=== PATIENT | female | born 1965 | race Caucasian/White ===

== ENCOUNTER 2018-06-15 15:17 | Inpatient (IN) ==
[2018-06-15] MEDS ORDERED: IOPAMIDOL 100 ML BOTTLE IV ONE (15:18)
[2018-06-15 17:11] LABS: Basophils # (Auto) 0 K/mcL (0.0-0.3); Basophils % (Auto) 0.3 % (0.0-2.0); Eosinophils # (Auto) 0 K/mcL (0.0-0.7); Eosinophils % (Auto) 0.3 % (0.0-7.0); Granulocytes % (Auto) 77.6 % (38.0-78.0); Lymphocytes # (Auto) 1.3 K/mcL (1.5-4.8); Lymphocytes % (Auto) 14.3 % (15.5-49.0); Mean Cell Volume 87.8 fL (80.0-100.0); Mean Corpuscular HGB Conc 32.9 g/dL (31.0-36.0); Mean Corpuscular Hemoglobin 28.9 pg (26.0-34.0); Monocytes # (Auto) 0.7 K/mcL (0.1-0.9); Monocytes % (Auto) 7.5 % (1.0-12.0); Platelet Count 217 K/mcL (140-440); RBC 4.65 M/mcL (4.00-5.20); Red Cell Distribution Width 13.1 % (11.5-14.5)
[2018-06-15 17:46] LABS: ALT/SGPT 11 U/l (0-40); Albumin 3.8 gm/dL (3.2-5.2); Alkaline Phosphatase 64 U/L (39-117); Blood Urea Nitrogen 20 mg/dl (6-20)
--- NOTE | 2018-06-15 18:00 | Cat Scan Report ---
CLINICAL INFORMATION: Diverticulitis COMPARISON: 12/01/15 TECHNIQUE: Following oral contrast and the injection of intravenous contrast the patient was scanned during the portal venous phase from the diaphragm through the symphysis pubis. Sagittal and coronal reformats were created.. The radiation exposure was limited using dose reduction technology FINDINGS: Lung bases are clear. There is a 1 cm cyst in the lateral segment left lobe of liver. This is a chronic stable finding. The liver is otherwise normal. Spleen is normal in size and homogeneous. Between the tail of the pancreas and spleen there is a 1.4 cm accessory spleen. This is an incidental finding. The pancreas, gallbladder, adrenals and kidneys are normal. There is a paraumbilical hernia which has a wide neck and contains a loop of small bowel. There is no inflammation or obstruction at this level. The oral contrast has passed through normal small intestine to the rectum without obstruction. The small bowel is normal. There is a row surgical sutures adjacent to the distal descending colon. This is near the site where the acute diverticulitis and abscess were seen on the prior study in 2016. There is no inflammation at this level. However, the patient has developed a new area of diverticulitis in the mid sigmoid colon. The wall is thickened and inflamed and there is inflammation in the surrounding fat. Above the sigmoid colon at this level it there is an abscess which contains fluid and air. It measures 3.6 x 4.0 cm in size. No ascites or free intraperitoneal air are present. Urinary bladder is decompressed. The uterus has been removed. The L5-S1 disc space is severely narrowed and degenerated and there is spur formation. This is a chronic stable finding. IMPRESSION: Acute diverticulitis in the sigmoid colon with a 4 cm abscess adjacent to the sigmoid. Ashlee Manley was called with the results Interpreted and Authenticated by: Jd Watt 06/15/18
--- NOTE | 2018-06-15 18:27 | Emergency Department Note ---
Abdominal Pain HPI - General Chief Complaint: Abdominal Pain Stated Complaint: Abd pain Time Seen by Provider: 06/15/18 15:44 Source: patient Mode of arrival: ambulatory Limitations: no limitations - History of Present Illness HPI Narrative: 52-year-old female in ED today for abdominal pain. Patient states 2 days ago she began having abdominal pain. Patient went to a minor care physician who ruled out urinary tract infection. Patient states she has had a fever and low right-sided abdominal pain, aches also has sharp spasms. 2016 patient had a ruptured colon along with diverticulitis. Patient states she does not take abdominal pain lightly. Pt has hx of appendectomy, total hysterectomy, except cervix and several episodes of diverticulitis. One episode resulted in sepsis and a partial colectomy. Patient is currently on antibiotics. MD Complaint: abdominal pain Onset (ago): day(s) (2) Consistency: constant Location: suprapubic Severity: mild Severity scale (1-10): 4 Associated symptoms: Reports: fever - Related Data Home Medications Medication Instructions Recorded Confirmed lactobacillus combination no.8 3 3,000 mmu cells PO QDAY 08/14/17 06/13/18 billion cell capsule mecobalamin (vitamin B12) 5,000 mcg PO 08/14/17 06/13/18 mcg disintegrating tablet polyethylene glycol 3350 17 gram 17 g PO QDAY PRN 08/14/17 06/13/18 oral powder packet Previous Rx's Medication Instructions Recorded methocarbamol 750 mg tablet 750 mg PO Q6H PRN #30 tab 01/31/18 naproxen 500 mg tablet 500 mg PO Q12H #30 tab 01/31/18 ciprofloxacin 500 mg tablet 500 mg PO BID #20 tab 06/13/18 metronidazole 500 mg tablet 500 mg PO BID #20 tab 06/13/18 Allergies Allergy/AdvReac Type Severity Reaction Status Date / Time lactose AdvReac Unknown Unknown Verified 06/15/18 15:18 Review of Systems Constitutional: Reports: fever. Denies: chills, weakness, weight change Eyes: Denies: eye pain, eye discharge ENT ED: Denies: ear pain, throat pain, dental pain, congestion Cardiovascular: Denies: chest pain, palpitations, dyspnea on exertion Respiratory: Denies: shortness of breath, cough, wheezes Gastrointestinal: Reports: abdominal pain. Denies: nausea, vomiting, diarrhea, constipation Musculoskeletal: Denies: back pain Integumentary: Denies: rash Psychiatric: Denies: anxiety, depression Endocrine: Denies: fatigue Hematological/Lymphatic: Denies: easy bleeding, lymphadenopathy Allergic/Immunologic: Denies: facial swelling, urticaria Abdominal Pain PMH - Past Medical History [facility] Narrative: All Active Problems (Last Reviewed 06/13/18 @ 11:19 by Arden Mitchell PA-C) Pelvic pain (Acute) Lumbar spine strain (Acute) Abdominal pain (Acute) Mid-back pain, acute (Acute) Sepsis (Acute) History of knee surgery (Chronic) History of hysterectomy (Chronic) History of delivery (Chronic) History of colonoscopy (Chronic) LLQ abdominal pain (Acute) Hyperbilirubinemia (Acute) Anemia (Chronic) Past Surgical History (Last Reviewed 06/13/18 @ 11:19 by Arden Mitchell PA-C) History of knee surgery (Chronic) History of hysterectomy (Chronic) History of delivery (Chronic) History of colonoscopy (Chronic) History of colostomy reversal (Acute) Status post Rodger's procedure (Acute) Family History (Last Reviewed 06/13/18 @ 11:19 by Arden Mitchell PA-C) Other No pertinent family history Social History (Last Updated 06/13/18 @ 11:25 by Arden Mitchell PA-C) No Social History Section defined Medical history: Reports: other (diverticulitis) Family history: Reports: other (diverticulitis) - Social History Smoking status: Never smoker Alcohol use: Reports: None Drug use: Reports: none Physical Exam Limitations: no limitations General appearance: alert, in no apparent distress Head: atraumatic, normocephalic, normal inspection Eye: Present: normal appearance, PERRL. Absent: conjunctival injection ENT: normal exam, normal oropharynx, mucous membranes moist, normal external ear exam Neck: Present: normal inspection. Absent: lymphadenopathy Chest: Present: normal inspection, symmetric chest wall rise. Absent: tenderness Respiratory: Present: normal lung sounds bilaterally. Absent: respiratory distress, rales/crackles, wheezes Cardiovascular: Present: normal rhythm, tachycardia. Absent: systolic murmur, diastolic murmur Abdominal: Present: soft, tenderness (suprapubic), normal bowel sounds. Absent : distention, guarding, rebound, rigidity Abdominal tenderness: Present: suprapubic Extremities: Present: normal inspection. Absent: tenderness, pedal edema Back: Present: normal inspection. Absent: tenderness Neurological: Present: alert, oriented X3, normal gait Psychiatric: Present: normal affect, normal mood. Absent: depressed, agitated, anxious Skin: Present: warm, dry, intact, normal color. Absent: cyanosis, diaphoresis, erythema Course Vital Signs Temperature 98.0 F 06/15/18 15:18 Pulse Rate 107 H 06/15/18 15:18 Respiratory Rate 16 06/15/18 15:18 Blood Pressure 117/78 06/15/18 15:18 Pulse Oximetry (%) 98 06/15/18 15:18 Temperature 98.0 F 06/15/18 15:18 Pulse Rate 91 H 06/15/18 18:20 Respiratory Rate 16 06/15/18 15:18 Blood Pressure 112/78 06/15/18 18:20 Pulse Oximetry (%) 97 06/15/18 18:20 Abdominal Pain - MDM Narrative Medical decision making narrative: Dr. Watt called with the CT results and advised surgical doctor to be consulted. Consulted with Dr. Hemphill patient's history and present condition along with diagnostics. Dr. Hemphill advised she would assess patient, and admit her. - Lab Data Lab results reviewed: Yes I reviewed the patient's lab results. Result diagrams: 06/15/18 16:25 06/15/18 15:55 Lab Results 06/15/18 06/15/18 06/15/18 Range/Units 15:55 15:55 16:25 WBC 9.4 (4.5-11.0) K/mcL RBC 4.65 (4.00-5.20) M/mcL Hgb 13.4 (12.0-15.0) g/dL Hct 40.8 (36.0-48.0) % POC Hct 40.0 (36.0-48.0) % MCV 87.8 (80.0-100.0) fL MCH 28.9 (26.0-34.0) pg MCHC 32.9 (31.0-36.0) g/dL RDW 13.1 (11.5-14.5) % Plt Count 217 (140-440) K/mcL MPV 9.3 (7.4-10.4) fL Gran % 77.6 (38.0-78.0) % Lymph % (Auto) 14.3 L (15.5-49.0) % Rusk % (Auto) 7.5 (1.0-12.0) % Eos % (Auto) 0.3 (0.0-7.0) % Baso % (Auto) 0.3 (0.0-2.0) % Gran # 7.3 (1.8-8.0) K/mcL Lymph # (Auto) 1.3 L (1.5-4.8) K/mcL Rusk # (Auto) 0.7 (0.1-0.9) K/mcL Eos # (Auto) 0 (0.0-0.7) K/mcL Baso # (Auto) 0 (0.0-0.3) K/mcL VBG Lactic Acid 0.6 (0.5-2.2) mmol/L POC Sodium 142 (133-145) mmol/L Sodium 137 (133-145) mmol/L POC Potassium 3.7 (3.3-5.1) mmol/L Potassium 3.8 (3.3-5.1) mmol/L POC Chloride 105 (96-108) mmol/L Chloride 102 (96-108) mmol/L Carbon Dioxide 21 L (22-30) mmol/L POC Total CO2 24 (22-30) mmol/L Anion Gap 14.0 (8-16) POC BUN 25 H (6-20) mg/dl BUN 20 (6-20) mg/dl Creatinine 0.9 (0.6-1.1) mg/dl POC Creatinine 0.8 (0.6-1.1) mg/dl GFR Calculation 75 Glucose 105 (70-105) mg/dL POC Glucose 109 H (70-105) mg/dL Calcium 9.3 (8.6-10.4) mg/dl POC WB Ioniz Calcium 1.22 (1.16-1.32) mmol/L Total Bilirubin 1.2 H (0.0-1.0) mg/dL AST 19 (0-37) U/l ALT 11 (0-40) U/l Alkaline Phosphatase 64 (39-117) U/L Total Protein 7.7 (5.9-8.4) gm/dL Albumin 3.8 (3.2-5.2) gm/dL Globulin 3.9 H (2.2-3.7) gm/dL Albumin/Globulin Ratio 1.0 (1.0-2.3) - Radiology Data Radiology results reviewed: Yes I reviewed the patient's radiology results. Acute diverticulitis in the sigmoid colon with a 4 cm abscess adjacent to the sigmoid. Disposition Pt seen by CYCLE CONSULTANT/PA only: No (Executor Of Estate) Clinical Impression: Diverticulitis, Abscess of abdominal cavity Disposition: Xfer As Inpt ([facility]) Condition: Fair Referrals: Deandre Umana MD [Primary Care Provider] - Time of Disposition: 19:18
[2018-06-15 19:30] LABS: Appearance,Urine CLEAR; Bacteria,Urine 0 /hpf (0); Bilirubin,Urine NEG (NEG); Color,Urine YELLOW; Glucose,Urine (UA) NORM (NEG); Leukocyte Esterase,Urine NEG /uL (NEG); Protein,Urine NEG (NEG); Specific Gravity,Urine <= 1.005 (1.000-1.035); Urine Blood 2+ (MODERATE) mg/dL (<0.03); Urine RBC 1 /hpf (0-1); Urine Squamous Epithelial Cell 1 /hpf (0-4); Urine Transitional Epi Cells < 1 /hpf (0-2); Urine WBC 1 /hpf (0-4); Urobilinogen,Urine NORM (NEG)
[2018-06-15] MEDS: LACTATED RINGERS 1,000 ML IV SCH (20:23)
--- NOTE | 2018-06-15 20:31 | XRay Report ---
HISTORY: Preop FINDINGS: The lungs are clear. The heart, mediastinum, henny and pleura are normal. IMPRESSION: Normal chest. Interpreted and Authenticated by: Jd Watt 06/15/18
[2018-06-15] MEDS: metroNIDAZOLE 500 MG/100 ML BAG IV SCH (22:14)
--- NOTE | 2018-06-15 22:58 | Consultation ---
DATE OF CONSULTATION: 06/15/2018 CHIEF COMPLAINT: Ms. Alves is seen in consultation at the request of BROWN Willis, in the Emergency Department for complaints of lower abdominal pain. HISTORY OF PRESENT ILLNESS: Ms. Alves is a 52-year-old woman who presented to the emergency department with complaints of lower abdominal pain beginning Monday, 2 days ago. On that day, she was having lower abdominal pain primarily in the suprapubic region, and she also reports having noticed low-grade fevers at home. Her symptoms were concerning to her. She has had prior episodes of diverticulitis, and she thought her symptoms were mimicking prior episodes. She sought out medical attention for this at the urgent care, as her primary care physician's office was closed. In urgent care, she requested that CT scan be done given her prior history of diverticulitis, but she states that it was decided that she did not need one. She was discharged from urgent care with prescriptions for Cipro and Flagyl. She was reportedly treated for diverticulitis and the possibility of urinary tract infection. She has had some improvement in her pain, but her pain has not completely resolved, and she has continued to have some low-grade fevers. Again because her symptoms were concerning for prior episodes of diverticulitis, she sought out further attention and came to the Emergency Department today. The patient's past medical history regarding her diverticular disease is significant for diverticulitis with pneumoperitoneum for which she was admitted to the hospital and underwent a Rodger's procedure on 12/01/2015. The patient subsequently underwent takedown of her colostomy on 07/08/2016. Since her last surgery, the patient has done relatively well and not had any issues regarding her colon until recently as per above. REVIEW OF SYSTEMS: CONSTITUTIONAL: Reports fevers at home. Denies chills. Denies weight loss. Appetite has been good. CARDIOVASCULAR: Denies chest pain or pressure. Denies palpitations. No history of NH. Reports that she is able to walk up 2 flights of stairs without difficulty. PULMONARY: No new cough or production of sputum. No history of asthma. No history of COPD. GASTROINTESTINAL: Abdominal pain as per above. History of diverticulitis with resection as per above. No nausea or vomiting. GENITOURINARY: No dysuria. SOCIAL HISTORY: The patient denies tobacco use and alcohol use. She denies any recreational drug use. ALLERGIES: LACTOSE. HOME MEDICATIONS: Lactobacillus, vitamin B12 of 5000 mcg p.o., MiraLax 17 grams p.o. daily, ciprofloxacin 500 mg p.o. b.i.d., and metronidazole 500 mg p.o. b.i.d. PHYSICAL EXAMINATION: VITAL SIGNS: Temperature 98.0, pulse 91, respirations 16, blood pressure 117/78, O2 saturations 97% on room air. GENERAL APPEARANCE: Ms. Alves is a well-developed, well-nourished woman who appears her stated age in no distress. HEENT: Head is normocephalic, sclerae white, mucous membranes are moist. NECK: Supple. CHEST: Breath sounds are clear to auscultation bilaterally. No rales or wheezes are heard. No use of accessory respiratory musculature. CARDIOVASCULAR: Regular rhythm, slightly tachycardic. ABDOMEN: Soft, nondistended. Mild tenderness in the lower abdomen just to the right of midline, still near the mid pelvis. There is no guarding on palpation of the area. No distinct mass palpable. No rebound tenderness on the abdomen. No involuntary guarding of the abdomen, and the remainder of the abdomen is nontender to palpation. Well-healed scars from previous surgeries for diverticulitis and colostomy takedown are present. EXTREMITIES: Warm with DP pulses easily palpable bilaterally. No edema. LABS AND STUDIES: CBC drawn in the Emergency Department shows white blood cell count of 9.4 with no left shift. Hemoglobin is 13.4, hematocrit 40.8, platelets of 217. Serum chemistry shows sodium of 137, potassium 3.8, chloride 102, CO2 of 21, BUN 20, creatinine 0.9, glucose 105, calcium 9.3, total bilirubin is mildly elevated at 1.2, AST 19, ALT 11, alkaline phosphatase 64. Urinalysis is negative for ketones, 2+ blood is present. Negative for nitrites and leukocyte esterase. CT scan performed in the Emergency Department done with oral and IV contrast shows diverticulitis in the mid sigmoid distal to the site of previous surgery. The wall was thickened and inflamed in this area with inflammation in the surrounding fat above the sigmoid colon at this level and abscess containing fluid and air is noted to be 3.6 x 4 cm in size. There is no ascites or free intraperitoneal air. ASSESSMENT AND PLAN: Diverticulitis with abscess. The patient will be admitted for IV fluid hydration, bowel rest, and IV antibiotics. At this time, she is clinically stable, and we will try some conservative management to see if this abscess may respond with this. The patient was informed that if she does not show adequate response to this therapy or if she shows worsening of her condition, she may need operative intervention. The patient verbalized understanding of this plan and is in agreement. RC:in Job ID: [id number] Doc ID: [id number] Trang Hemphill MD
[2018-06-15] MEDS: PIPERACILLIN SODIUM/TAZOBACTAM 3.375 GM in DEXTROSE 5% IN WATER 50 ML IV SCH (23:21)
[2018-06-16] MEDS: LACTATED RINGERS 1,000 ML IV SCH ×3 (04:44→21:06)
[2018-06-16] MEDS: metroNIDAZOLE 500 MG/100 ML BAG IV SCH ×3 (04:44→21:29)
[2018-06-16] MEDS: PIPERACILLIN SODIUM/TAZOBACTAM 3.375 GM in DEXTROSE 5% IN WATER 50 ML IV SCH ×3 (05:54→22:39)
[2018-06-16 06:39] LABS: Basophils # (Auto) 0 K/mcL (0.0-0.3); Basophils % (Auto) 0.3 % (0.0-2.0); Eosinophils # (Auto) 0 K/mcL (0.0-0.7); Eosinophils % (Auto) 0.6 % (0.0-7.0); Granulocytes % (Auto) 70.9 % (38.0-78.0); Lymphocytes # (Auto) 1.2 K/mcL (1.5-4.8); Lymphocytes % (Auto) 19.3 % (15.5-49.0); Mean Cell Volume 87.1 fL (80.0-100.0); Mean Corpuscular HGB Conc 33.6 g/dL (31.0-36.0); Mean Corpuscular Hemoglobin 29.3 pg (26.0-34.0); Monocytes # (Auto) 0.6 K/mcL (0.1-0.9); Monocytes % (Auto) 8.9 % (1.0-12.0); Platelet Count 200 K/mcL (140-440); RBC 4.03 M/mcL (4.00-5.20); Red Cell Distribution Width 13.3 % (11.5-14.5)
[2018-06-16 07:17] LABS: ALT/SGPT 9 U/l (0-40); Albumin/Globulin Ratio 0.9 (1.0-2.3); Alkaline Phosphatase 51 U/L (39-117); Blood Urea Nitrogen 19 mg/dl (6-20)
--- NOTE | 2018-06-16 07:25 | Emergency Department Note ---
ED Note Addendum Note Addendum: I discussed this case with the mid-level provider and agree with her assessment and plan.
--- NOTE | 2018-06-16 09:31 | General Surgery Progress Note ---
Surgical - Auxillary Note - Subjective Patient Information: Note initiated : 06/16/18 at 9:28 am Service Date, if different from initiated Date: [] Patient: Shana Alves 52 y/o F admitted on 06/15/18 for Abd pain. Chief Complaint: [] Patient sitting up in bed. Says she is doing well. Pain less this morning and seeming a little more midline. No pain medication given overnight. No nausea or emesis. Vital Signs Temp Pulse Resp BP Pulse Ox 98.6 F 76 16 95/60 96 06/16/18 07:10 06/16/18 04:00 06/16/18 07:10 06/16/18 07:10 06/16/18 07:10 Period Temp Pulse Resp BP Sys/Baeza Pulse Ox Last 24 Hr 97.9 F-98.7 F 75-107 16-16 95-128/60-85 96-98 Intake and Output 06/15/18 06/16/18 06/16/18 21:59 05:59 13:59 Intake Total 150 / 150 Output Total 350 / 350 Balance -200 / -200 Weight 172 lb PE: No distress Chest: clear bilaterally. No rales or wheezes. CV: regular rate and rhythm. ABD: soft, non distended. minimal tenderness in lower mid abdomen. EXT: Warm, no edema. CBC and Chem 7 06/16/18 04:55 06/16/18 04:55 A/P: Diverticulitis with abscess. Clinically stable. Continue conservative therapy for now with bowel rest and IV abx.
[2018-06-16] MEDS: ONDANSETRON 4 MG/2 ML VIAL IV PRN ×2 (10:20→23:42)
[2018-06-16] MEDS ORDERED: ACETAMINOPHEN 1,000 MG/100 ML BOTTLE IV ONE (20:02)
[2018-06-16] MEDS: DEXTROSE 5%-1/2NS W/10MEQ KCL 1,000 ML IV SCH (20:34)
[2018-06-17] MEDS: metroNIDAZOLE 500 MG/100 ML BAG IV SCH ×3 (04:48→22:32)
[2018-06-17 05:40] LABS: Blood Urea Nitrogen 21 mg/dl (6-20)
[2018-06-17] MEDS: PIPERACILLIN SODIUM/TAZOBACTAM 3.375 GM in DEXTROSE 5% IN WATER 50 ML IV SCH ×3 (05:52→23:46)
[2018-06-17] MEDS ORDERED: ACETAMINOPHEN 1,000 MG/100 ML BOTTLE IV PRN (08:45)
--- NOTE | 2018-06-17 10:06 | General Surgery Progress Note ---
Surgical - Auxillary Note - Subjective Patient Information: Note initiated : 06/17/18 at 9:58 am Service Date, if different from initiated Date: [] Patient: Shana Alves 52 y/o F admitted on 06/15/18 for Abd pain. Chief Complaint: Patient resting in bed. Had a headache last night which resolved with Tylenol. Reports abdominal pain has resolved. No nausea or vomiting. Passed stool last evening and passing some gas. Vital Signs Temp Pulse Resp BP Pulse Ox 98.0 F 66 16 91/52 98 06/17/18 06:28 06/17/18 04:27 06/17/18 06:28 06/17/18 06:28 06/17/18 06:28 Period Temp Pulse Resp BP Sys/Baeza Pulse Ox Last 24 Hr 97.9 F-98.3 F 66-82 14-16 91-111/52-79 95-98 Intake and Output 06/16/18 06/17/18 06/17/18 21:59 05:59 13:59 Intake Total 1250 / 1250 150 / 150 Output Total 625 / 625 150 / 150 300 / 300 Balance 625 / 625 0 / 0 -300 / -300 Weight 175 lb 8 oz PE: Patient is resting in bed. No distress. Chest: Breath sounds clear bilaterally, no rales or wheezes heard. No use of accessory musculature. Cardiovascular: Regular rhythm and rate. Abdomen: Soft, nondistended, nontender to palpation. Tenderness in the lower abdomen seems resolved. Extremities warm without cyanosis or edema. CBC and Chem 7 06/16/18 04:55 06/17/18 04:16 Assessment and plan: Diverticulitis with abscess. Clinically stable with improvement in exam. Patient remains afebrile and has had a normal white blood cell count on admission and yesterday. We will trial clear liquids today. Continue IV antibiotics.
[2018-06-17] MEDS: ONDANSETRON 4 MG/2 ML VIAL IV PRN (22:32)
[2018-06-17] MEDS: DEXTROSE 5%-1/2NS W/10MEQ KCL 1,000 ML IV SCH ×2 (23:41→23:48)
[2018-06-18] MEDS: metroNIDAZOLE 500 MG/100 ML BAG IV SCH ×3 (04:48→19:09)
[2018-06-18] MEDS: PIPERACILLIN SODIUM/TAZOBACTAM 3.375 GM in DEXTROSE 5% IN WATER 50 ML IV SCH ×3 (06:17→22:12)
[2018-06-18 06:24] LABS: Basophils # (Auto) 0 K/mcL (0.0-0.3); Basophils % (Auto) 0.3 % (0.0-2.0); Eosinophils # (Auto) 0 K/mcL (0.0-0.7); Eosinophils % (Auto) 1.1 % (0.0-7.0); Granulocytes % (Auto) 67.4 % (38.0-78.0); Lymphocytes # (Auto) 0.9 K/mcL (1.5-4.8); Lymphocytes % (Auto) 21.2 % (15.5-49.0); Mean Cell Volume 87.1 fL (80.0-100.0); Mean Corpuscular HGB Conc 33.9 g/dL (31.0-36.0); Mean Corpuscular Hemoglobin 29.5 pg (26.0-34.0); Monocytes # (Auto) 0.4 K/mcL (0.1-0.9); Platelet Count 223 K/mcL (140-440); RBC 3.69 M/mcL (4.00-5.20)
[2018-06-18 06:49] LABS: Blood Urea Nitrogen 10 mg/dl (6-20)
[2018-06-18] MEDS: DEXTROSE 5%-1/2NS W/10MEQ KCL 1,000 ML IV SCH ×2 (12:49→22:22)
--- NOTE | 2018-06-18 14:24 | General Surgery Progress Note ---
Subjective Patient reports: feels better, pain is less, tolerating liquids well, flatus, no bowel movement, nausea, afebrile Narrative: Note initiated : 06/18/18 at 2:22 pm Service Date, if different from initiated Date: [] Patient: Shana Alves 52 y/o F admitted on 06/15/18 for Abd Pain/ Diverticulitis with Abscess. Chief Complaint: [patient had some nausea earlier this morning, but is now doing well. She is tolerating clear liquids. Her pelvic and left lower quadrant pain IS improved.] Objective Temp Pulse Resp BP Pulse Ox 98.3 F 62 18 117/82 97 06/18/18 11:02 06/18/18 04:12 06/18/18 11:02 06/18/18 11:02 06/18/18 11:02 - Additional Data Intake & Output - Last 24 hours: Intake & Output 06/16/18 06/17/18 06/18/18 06/19/18 05:59 05:59 05:59 05:59 Intake Total 250 / 250 1550 / 1550 730 / 730 150 / 150 Output Total 350 / 350 775 / 775 3400 / 3400 650 / 650 Balance -100 / -100 775 / 775 -2670 / -2670 -500 / -500 Weight 172 lb 175 lb 8 oz 174 lb - General physical appearance well developed, well nourished, no distress - Eyes PERRL, normal ocular movement - ENT normal pinna, normal nares, normal mucosa, no hearing loss, no congestion - Neck no masses, no bruits, trachea midline, no venous distension - Respiratory normal expansion, normal respiratory effort, clear to auscultation - Cardiovascular Cardiovascular exam: Present: normal rate and rhythm, RRR, +S1, +S2. Absent: JVD, tachycardia - Abdomen non tender (no tenderness to palpation in left lower quadrant or suprapubic area ; active bowel sounds;;;; no masses felt), bowel sounds (present) - Integumentary no rash, no growths, no abnormal pigmentation - Neurologic normal coordination, normal sensation - Musculoskeletal normal gait, normal posture - Psychiatric oriented to time, oriented to person, oriented to place, speech is normal, memory intact - Labs 06/18/18 04:42 06/18/18 04:42 Diabetes panel 06/18/18 Range/Units 04:42 Sodium 140 (133-145) mmol/L Potassium 3.8 (3.3-5.1) mmol/L Chloride 107 (96-108) mmol/L Carbon Dioxide 24 (22-30) mmol/L BUN 10 (6-20) mg/dl Creatinine 0.8 (0.6-1.1) mg/dl Glucose 90 (70-105) mg/dL Calcium 8.6 (8.6-10.4) mg/dl Calcium panel 06/18/18 Range/Units 04:42 Calcium 8.6 (8.6-10.4) mg/dl Pituitary panel 06/18/18 Range/Units 04:42 Sodium 140 (133-145) mmol/L Potassium 3.8 (3.3-5.1) mmol/L Chloride 107 (96-108) mmol/L Carbon Dioxide 24 (22-30) mmol/L BUN 10 (6-20) mg/dl Creatinine 0.8 (0.6-1.1) mg/dl Glucose 90 (70-105) mg/dL Calcium 8.6 (8.6-10.4) mg/dl Adrenal panel 06/18/18 Range/Units 04:42 Sodium 140 (133-145) mmol/L Potassium 3.8 (3.3-5.1) mmol/L Chloride 107 (96-108) mmol/L Carbon Dioxide 24 (22-30) mmol/L BUN 10 (6-20) mg/dl Creatinine 0.8 (0.6-1.1) mg/dl Glucose 90 (70-105) mg/dL Calcium 8.6 (8.6-10.4) mg/dl Assessment and Plan (1) Diverticulitis of intestine with abscess Status: Acute Assessment and plan: continue IV antibiotics. Advanced to full liquid diet. CT of abdomen and pelvis in the a.m. Current Visit: Yes - Time Spent With Patient Total time spent is greater than 50% in coordination of care (as documented) at patient's floor/unit and/or counseling patient:
[2018-06-18] MEDS: ACETAMINOPHEN 1,000 MG/100 ML BOTTLE IV PRN (14:55)
[2018-06-18] MEDS: ONDANSETRON 4 MG/2 ML VIAL IV PRN (19:09)
[2018-06-19] MEDS: DEXTROSE 5%-1/2NS W/10MEQ KCL 1,000 ML IV SCH ×2 (00:27→16:32)
[2018-06-19] MEDS: ACETAMINOPHEN 1,000 MG/100 ML BOTTLE IV PRN (04:31)
[2018-06-19] MEDS: metroNIDAZOLE 500 MG/100 ML BAG IV SCH ×2 (05:23→14:52)
[2018-06-19] MEDS: PIPERACILLIN SODIUM/TAZOBACTAM 3.375 GM in DEXTROSE 5% IN WATER 50 ML IV SCH ×2 (06:18→14:52)
[2018-06-19] MEDS ORDERED: IOPAMIDOL 100 ML BOTTLE IV ONE (08:24)
--- NOTE | 2018-06-19 09:11 | Cat Scan Report ---
CLINICAL INFORMATION: Follow-up diverticulitis with abscess COMPARISON: 06/15/[address] TECHNIQUE: Following enteric contrast, 80 cc of Isovue-300 were injected intravenously, and 60 seconds later, 0.625 mm helical slices were obtained from the mid heart through the subtrochanteric regions. Following reconstruction, 2.5 mm sagittal, coronal and axial reformatted images were processed and reviewed at bone, lung and soft tissue windows. Five minutes later, 0.625 mm helical slices were obtained from the mid heart through the kidneys and viewed at soft tissue windows.The exam was performed using radiation dose optimization techniques including, but not limited to, automated exposure control, adjustment of the mA and/or kV according to patient size and use of iterative reconstruction technique. FINDINGS: Lung bases show no abnormality - no effusion. Visualized heart is grossly normal. Images through the abdomen show minimal fatty change within the liver. A 10 mm cyst in the left hepatic lobe again noted. There is minimal periportal edema which is a new finding. Gallbladder and bile ducts are normal: CBD is 5 mm.Both kidneys, adrenal glands, spleen, pancreas and aorta, including aortic branches, are normal in size configuration and attenuation without focal lesion. Images through the pelvis show diffuse mild wall thickening the urinary bladder which is likely artifact related to incomplete distention. Hysterectomy/oophorectomy changes noted. No free air, free fluid or adenopathy. Mild diverticulitis involving the mid sigmoid colon has improved from the previous study. The peridiverticular abscess has decreased from 4 to 3 cm with abatement in the inflammation in the surrounding mesenteric fat. The remaining colon is normal. Appendix is surgically absent. Small bowel are stomach are grossly normal. Bone windows show no osseous abnormality IMPRESSION: 1. Marked improvement in sigmoid diverticulitis with decrease in peridiverticular abscess from 4 cm to 3 cm 2. Mild periportal edema. A new finding. This typically either due to hepatocellular disease - hepatic inflammation or less likely elevated right heart pressures. There is no CT evidence for right heart pressures. Please correlate with LFTs pattern 3. Small periumbilical hernia containing a short segment of nonincarcerated small bowel - stable Interpreted and Authenticated by: Hung Rubalcava 06/19/18
--- NOTE | 2018-06-19 14:47 | Discharge Summary ---
Providers - Providers Patient information: Note initiated : 06/19/18 at 2:45 pm Service Date, if different from initiated Date: [] Patient: Shana Alves 52 y/o F admitted on 06/15/18 for Abd Pain/ Diverticulitis with Abscess. Chief Complaint: [] Date of admission: 06/16/18 Discharge date: 06/19/18 Attending physician: Trang Hemphill Hospitalization Hospital course: 52-year-old female who presents with a history of recurrent lower abdominal pain. On evaluation she was noted to have diverticulitis with small abscess, 4 cm. She was admitted and treated with IV antibiotics and had prompt improvement. At the present time she is asymptomatic and does not have any tenderness. She is afebrile without leukocytosis. CT of the abdomen today shows near complete resolution of the diverticulitis with decrease in size of the abscess. Patient is clinically stable and will be discharged home on oral antibiotics for 2 more weeks. Discharge diagnosis: acute diverticulitis with abscess Reason for admission: recurrent abdominal pain Procedures: None Pertinent studies/significant findings: CT of abdomen and pelvis with contrast Complications: None Exam Temp Pulse Resp BP Pulse Ox 97.8 F 63 12 111/73 97 06/19/18 12:00 06/19/18 12:00 06/19/18 12:00 06/19/18 12:00 06/19/18 12:00 - General physical appearance well developed, well nourished, no distress - Eyes PERRL, normal ocular movement - ENT normal pinna, normal nares, normal mucosa, no hearing loss, no congestion - Head Head exam IM: Present: atraumatic, normocephalic - Neck no masses, no bruits, trachea midline, no lymphadectomy, no venous distension - Cardiovascular Cardiovascular exam IM: Present: normal rate and rhythm - Respiratory normal expansion, normal respiratory effort, clear to percussion, clear to auscultation - Abdomen Abdomen: Present: soft, tender (minimal tenderness and port sites,;;;;;;;;;; port sites well-healed), bowel sounds Hernia: Present: none - Integumentary Present: no rash, no growths, no abnormal pigmentation - Neurologic Present: normal coordination, normal sensation - Musculoskeletal Present: normal gait, normal posture - Psychiatric Present: oriented to time, oriented to person, oriented to place, speech is normal, memory intact Discharge Plan - Patient/Caregiver Discharge Instructions Activity: increase activity as tolerated Diet: Low Fiber (. GI soft diet) Additional Instructions: Continue soft diet for 1 week and then advance as tolerated . CT of abdomen and pelvis with IV contrast to be done 3 days before patient returns to the office.Follow-up in the office on July 05 Prescriptions: Ciprofloxacin HCl [Cipro] 500 mg PO BID #20 tab metroNIDAZOLE [Metronidazole] 500 mg PO TID #30 tab - Follow up Plan Follow up with: Deandre Umana MD [Primary Care Provider] - Disposition: Home, Self-Care Prognosis: Good Rehab Potential: Good I certify that the patient requires SNF services.: No Overall status at discharge: patient is not back to baseline Pending Studies Resuscitation Status Full Code Diet Full Liquid Diet Start MonJun 19 111 Metronidazole (Flagyl) 500 mg in 100 mls @ 100 mls/hr IV Q8H CATIE Last Infusion: 06/19/18 06:23 Dose: 0 mls/hr Admin: 06/19/18 05:23 Dose: 100 mls/hr Infusion: 06/18/18 20:09 Dose: 100 mls/hr Admin: 06/18/18 19:09 Dose: 100 mls/hr Infusion: 06/18/18 14:07 Dose: 0 mls/hr Admin: 06/18/18 12:48 Dose: 100 mls/hr Infusion: 06/18/18 05:48 Dose: 100 mls/hr Admin: 06/18/18 04:48 Dose: 100 mls/hr Infusion: 06/17/18 23:32 Dose: 100 mls/hr Admin: 06/17/18 22:32 Dose: 100 mls/hr Infusion: 06/17/18 13:00 Dose: 100 mls/hr Admin: 06/17/18 12:00 Dose: 100 mls/hr Infusion: 06/17/18 05:48 Dose: 100 mls/hr Admin: 06/17/18 04:48 Dose: 100 mls/hr Infusion: 06/16/18 22:29 Dose: 100 mls/hr Admin: 06/16/18 21:29 Dose: 100 mls/hr Infusion: 06/16/18 14:43 Dose: 100 mls/hr Admin: 06/16/18 13:43 Dose: 100 mls/hr Infusion: 06/16/18 05:44 Dose: 100 mls/hr Admin: 06/16/18 04:44 Dose: 100 mls/hr Infusion: 06/15/18 23:14 Dose: 100 mls/hr Admin: 06/15/18 22:14 Dose: 100 mls/hr Piperacillin Sod/Tazobactam (Sod 3.375 gm/ Dextrose) 50 mls @ 100 mls/hr IV Q8H CATIE Last Infusion: 06/19/18 06:48 Dose: 0 mls/hr Admin: 06/19/18 06:18 Dose: 100 mls/hr Infusion: 06/18/18 22:42 Dose: 100 mls/hr Admin: 06/18/18 22:12 Dose: 100 mls/hr Infusion: 06/18/18 14:37 Dose: 100 mls/hr Admin: 06/18/18 14:07 Dose: 100 mls/hr Infusion: 06/18/18 06:47 Dose: 100 mls/hr Admin: 06/18/18 06:17 Dose: 100 mls/hr Infusion: 06/18/18 00:16 Dose: 100 mls/hr Admin: 06/17/18 23:46 Dose: 100 mls/hr Infusion: 06/17/18 15:30 Dose: 100 mls/hr Admin: 06/17/18 15:00 Dose: 100 mls/hr Infusion: 06/17/18 06:22 Dose: 100 mls/hr Admin: 06/17/18 05:52 Dose: 100 mls/hr Infusion: 06/16/18 23:09 Dose: 100 mls/hr Admin: 06/16/18 22:39 Dose: 100 mls/hr Infusion: 06/16/18 15:53 Dose: 100 mls/hr Admin: 06/16/18 15:23 Dose: 100 mls/hr Infusion: 06/16/18 06:24 Dose: 100 mls/hr Admin: 06/16/18 05:54 Dose: 100 mls/hr Infusion: 06/15/18 23:51 Dose: 100 mls/hr Admin: 06/15/18 23:21 Dose: 100 mls/hr Potassium Chloride/Dextrose/Sod Cl (Dextrose 5%-1/2ns W/10meq Kcl) 1,000 mls @ 75 mls/hr IV .[id number] CATIE Last Admin: 06/19/18 00:27 Dose: Not Given Admin: 06/18/18 22:22 Dose: 75 mls/hr Admin: 06/18/18 12:49 Dose: Admin: 06/17/18 23:48 Dose: Not Given Admin: 06/17/18 23:41 Dose: Not Given Infusion: 06/17/18 09:54 Dose: 75 mls/hr Admin: 06/16/18 20:34 Dose: 75 mls/hr Acetaminophen (Ofirmev) 1,000 mg in 100 mls @ 200 mls/hr IV Q12HP PRN PRN Reason: PAIN/FEVER > 101 Last Infusion: 06/19/18 05:01 Dose: 0 mls/hr Admin: 06/19/18 04:31 Dose: 200 mls/hr Infusion: 06/18/18 15:25 Dose: 200 mls/hr Admin: 06/18/18 14:55 Dose: 200 mls/hr Ondansetron HCl (Zofran) 4 mg IV Q6HP PRN PRN Reason: Nausea And Vomiting Last Admin: 06/18/18 19:09 Dose: 4 mg Admin: 06/17/18 22:32 Dose: 4 mg Admin: 06/16/18 23:42 Dose: 4 mg Admin: 06/16/18 10:20 Dose: 4 mg Shift Summary 06/19/18 03:14 Shift Summary by Adin Ivan RM 131 Shana Alves A&O x 4, c/o of nausea x2 w/o vomiting this shift after clear liquid diet intake, tolerating very slowly if ok tonight dr may advance to full tomorrow, IV infusing and continuing to get IV ABO's. UP ad karl in room and hallway. Initialized on 06/19/18 03:14 - END OF NOTE
[2018-06-19] MEDS: ONDANSETRON 4 MG/2 ML VIAL IV PRN (16:35)
== END 2018-06-19 16:58 | disposition home or self-care (01) | DRG 392 ==
LOC: ED 15:17 → MEDSUR 19:45
PROVIDERS: ADMIT Surgery; ATTEND Family Medicine Adult Medicine